=== PATIENT | male | born 1965 | race Caucasian/White ===

== ENCOUNTER 2016-11-10 03:45 | Emergency (ER) | payer BC ==
[2016-11-10] MEDS ORDERED: LORAZEPAM INJ 2 MG/1 ML VIAL IV ONE (04:18)
[2016-11-10 04:25] LABS: ABSOLUTE BASOPHILS # (AUTO) 0.1 10^3/uL (0.0-0.2); ABSOLUTE EOSINOPHILS # (AUTO) 0.3 10^3/uL (0.0-0.6); ABSOLUTE LYMPHOCYTES (AUTO) 4.1 10^3/uL (0.5-4.7); ABSOLUTE MONOCYTES (AUTO) 0.6 10^3/uL (0.1-1.4); ABSOLUTE NEUT (AUTO) 4.8 10^3/uL (1.7-8.2); BASOPHILS % (AUTO) 0.9 % (0-2); EOSINOPHILS % (AUTO) 2.6 % (0-6); HEMATOCRIT 47.8 % (37.9-51.0); HEMOGLOBIN 15.7 g/dL (13.5-17.0); HGB HCT DIFFERENCE -0.7; LYMPHOCYTES % (AUTO) 41.5 % (13-45); MEAN CORPUSCULAR HEMOGLOBIN 31.4 pg (27.0-33.4); MEAN CORPUSCULAR HGB CONC 32.9 g/dL (32.0-36.0); MEAN CORPUSCULAR VOLUME 95 fl (80-97); RED BLOOD COUNT 5.01 10^6/uL (4.35-5.55); RED CELL DISTRIBUTION WIDTH 12.8 % (11.5-14.0); WHITE BLOOD COUNT 9.8 10^3/uL (4.0-10.5)
--- NOTE | 2016-11-10 04:26 | ER Document Report ---
ED General - General Chief Complaint: Tremor Stated Complaint: UNCONTROLLABLE SHAKING Time Seen by Provider: 11/10/16 04:06 Mode of Arrival: Medic Information source: Patient Notes: Patient presents complaining of tremors to his upper extremities, right lower extremity and neck that started around midnight tonight. Patient states that his neck occasionally spasm causing his head to rotate to the right. Patient states that he additionally complains of occasional right upper quadrant pain for the past 4-5 months that has flared up tonight as well. Patient states that initially he had symptoms to bilateral hands, patient was given Benadryl per EMS and states that the hand tremors seem to have improved somewhat now. Patient denies any fever, nausea, or vomiting. Patient denies any recent illness. Patient states that he has had some hand twitching years ago but was never fully evaluated for this complaint and it resolved. - HPI Onset: Other - Midnight Onset/Duration: Gradual Quality of pain: Cramping Pain Level: 3 Associated symptoms: Other - Right upper quadrant abdominal pain, muscle twitching. 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 denies: Fever, Recent illness EENT: No symptoms reported Cardiovascular: No symptoms reported. denies: Chest pain, Dizziness Respiratory: No symptoms reported. denies: Cough, Short of breath Gastrointestinal: Abdominal pain. denies: Diarrhea, Nausea, Vomiting Genitourinary: No symptoms reported. denies: Dysuria Male Genitourinary: No symptoms reported Musculoskeletal: Muscle pain - Right thigh muscle tenderness due to muscle spasms. denies: Back pain Skin: No symptoms reported Hematologic/Lymphatic: No symptoms reported Neurological/Psychological: No symptoms reported Physical Exam - Vital signs Vitals: Temp Pulse Resp BP Pulse Ox 98.3 F 94 20 123/82 96 11/10/16 03:49 11/10/16 03:49 11/10/16 03:49 11/10/16 03:49 11/10/16 03:49 - General General appearance: Appears well, Alert In distress: None - HEENT Head: Normocephalic, Atraumatic Eyes: Normal Conjunctiva: Normal Mouth/Lips: Normal Mucous membranes: Normal Pharynx: Normal Neck: Normal, Supple. No: Lymphadenopathy, Meningismus - Respiratory Respiratory status: No respiratory distress Chest status: Nontender Breath sounds: Normal. No: Rales, Rhonchi, Stridor, Wheezing Chest palpation: Normal - Cardiovascular Rhythm: Regular Heart sounds: S1 appreciated, S2 appreciated Murmur: No - Abdominal Inspection: Obese Distension: No distension Bowel sounds: Normal Tenderness: Tender - RUQ Organomegaly: No organomegaly - Back Back: Normal, Nontender. No: CVA tenderness, Vertebra tenderness - Extremities General upper extremity: Normal strength, Other - occasional twitching movements of bilat hands General lower extremity: Normal strength, Other - right thigh jerking rhythmically - Neurological Neuro grossly intact: Yes Cognition: Normal Jeffy Coma Scale Eye Opening: Spontaneous [place]y Coma Scale Verbal: Oriented Jeffy Coma Scale Motor: Obeys Commands [place] Coma Scale Total: 15 Speech: Normal. No: Dysarthria Cranial nerves: Normal. 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 No: Weakness - Psychological Associated symptoms: Normal affect, Normal mood - Skin Skin Temperature: Warm Skin Moisture: Dry Skin Color: Normal Course - Re-evaluation Re-evalutation: 11/10/16 04:[address] haines who advises evaluating electrolytes and treating with medications such as ativan 11/10/16 05:22 RN states that just prior to administration of Ativan, patient's tremors resolved. Currently resting with eyes closed, no tremors noted at this time. Patient states that occasionally his neck will start to drop to the right but otherwise he has no complaints. 11/10/16 05:[address] haines, reviewed chemistry panel, recommends giving 1.5 liter NS bolus and then rechecking chemistry. If pt still with elevated anion gap and muscle twitching, pt may need admission. 11/10/16 07:57 States that he feels much better, no additional muscle twitching or spasms. Consulted with Dr. Beard regarding patient presentation and repeat chemistry panel and agrees with discharge plan of care. - Vital Signs Vital signs: Temp Pulse Resp BP Pulse Ox 97.9 F 77 18 124/72 96 11/10/16 06:26 11/10/16 06:26 11/10/16 06:26 11/10/16 06:26 11/10/16 06:26 - Laboratory Result Diagrams: 11/10/16 03:55 11/10/16 06:50 Laboratory results interpreted by me: 11/10/16 11/10/16 11/10/16 03:55 04:40 06:50 Carbon Dioxide 16 L 18 L Anion Gap 25 H Glucose 230 H 172 H Total Protein 8.3 H Urine Protein 30 H Urine Glucose (UA) >=500 H Urine Ketones 20 H Urine Blood SMALL H Labs- Entire Visit 11/10/16 11/10/16 11/10/16 03:55 03:55 04:40 WBC 9.8 RBC 5.01 Hgb 15.7 Hct 47.8 MCV 95 MCH 31.4 MCHC 32.9 RDW 12.8 Plt Count 351 Seg Neutrophils % 49.0 Lymphocytes % 41.5 Monocytes % 6.0 Eosinophils % 2.6 Basophils % 0.9 Absolute Neutrophils 4.8 Absolute Lymphocytes 4.1 Absolute Monocytes 0.6 Absolute Eosinophils 0.3 Absolute Basophils 0.1 Sodium 144.3 Potassium 4.8 Chloride 103 Carbon Dioxide 16 L Anion Gap 25 H BUN 14 Creatinine 0.82 Est GFR ( Amer) > 60 Est GFR (Non-Af Amer) > 60 Glucose 230 H Calcium 10.1 Total Bilirubin 0.5 Direct Bilirubin 0.4 Indirect Bilirubin Not Reportable Neonat Total Bilirubin Not Reportable AST 41 ALT 64 Alkaline Phosphatase 89 Creatine Kinase 114 Total Protein 8.3 H Albumin 5.0 Lipase 119.9 Urine Color YELLOW Urine Appearance CLEAR Urine pH 5.0 Ur Specific [place] 1.009 Urine Protein 30 H Urine Glucose (UA) >=500 H Urine Ketones 20 H Urine Blood SMALL H Urine Nitrite NEGATIVE Urine Bilirubin NEGATIVE Urine Urobilinogen NEGATIVE Ur Leukocyte Esterase NEGATIVE Urine WBC (Auto) 1 Urine RBC (Auto) 0 U Hyaline Cast (Auto) 1 Urine Mucus (Auto) RARE Urine Ascorbic Acid NEGATIVE Urine Opiates Screen Urine Methadone Screen Ur Barbiturates Screen Ur Phencyclidine Scrn Ur Amphetamines Screen U Benzodiazepines Scrn Urine Cocaine Screen U Marijuana (THC) Screen 11/10/16 11/10/16 04:40 06:50 WBC RBC Hgb Hct MCV MCH MCHC RDW Plt Count Seg Neutrophils % Lymphocytes % Monocytes % Eosinophils % Basophils % Absolute Neutrophils Absolute Lymphocytes Absolute Monocytes Absolute Eosinophils Absolute Basophils Sodium 143.4 Potassium 4.1 Chloride 107 Carbon Dioxide 18 L Anion Gap 18 BUN 12 Creatinine 0.77 Est GFR ( Amer) > 60 Est GFR (Non-Af Amer) > 60 Glucose 172 H Calcium 8.8 Total Bilirubin Direct Bilirubin Indirect Bilirubin Neonat Total Bilirubin AST ALT Alkaline Phosphatase Creatine Kinase Total Protein Albumin Lipase Urine Color Urine Appearance Urine pH Ur Specific [place] Urine Protein Urine Glucose (UA) Urine Ketones Urine Blood Urine Nitrite Urine Bilirubin Urine Urobilinogen Ur Leukocyte Esterase Urine WBC (Auto) Urine RBC (Auto) U Hyaline Cast (Auto) Urine Mucus (Auto) Urine Ascorbic Acid Urine Opiates Screen NEGATIVE Urine Methadone Screen NEGATIVE Ur Barbiturates Screen NEGATIVE Ur Phencyclidine Scrn NEGATIVE Ur Amphetamines Screen NEGATIVE U Benzodiazepines Scrn NEGATIVE Urine Cocaine Screen NEGATIVE U Marijuana (THC) Screen NEGATIVE Discharge - Discharge Clinical Impression: Muscle twitching, elevated anion gap-resolved, dystonia-resolved Condition: Stable Disposition: HOME, SELF-CARE Instructions: Extrapyramidal Symptoms ([facility]) Additional Instructions: Return immediately for any new or worsening symptoms Followup with your primary care provider, [facility], call tomorrow to make a followup appointment See your primary doctor this week for recheck.
[2016-11-10 04:32] LABS: ALANINE AMINOTRANSFERASE 64 U/L (21-72); ALKALINE PHOSPHATASE 89 U/L (38-126); ASPARTATE AMINO TRANSFERASE 41 U/L (17-59); BILIRUBIN,DIRECT 0.4 mg/dL (0.0-0.4); BILIRUBIN,TOTAL 0.5 mg/dL (0.2-1.3); BLOOD UREA NITROGEN 14 mg/dL (7-20); CALCIUM 10.1 mg/dL (8.4-10.2); CARBON DIOXIDE 16 mmol/L (22-30); CHLORIDE 103 mmol/L (98-107); CREATINE KINASE 114 U/L (55-170); CREATININE RESULT 0.82 mg/dL (0.52-1.25); GLUCOSE 230 mg/dL (75-110); LIPASE 119.9 U/L (23-300); POTASSIUM 4.8 mmol/L (3.6-5.0); TOTAL PROTEIN 8.3 g/dL (6.3-8.2)
[2016-11-10 04:40] LABS: ANION GAP 25 (5-19); SODIUM 144.3 mmol/L (137-145)
[2016-11-10 05:00] LABS: APPEARANCE,URINE CLEAR; BILIRUBIN,URINE NEGATIVE (NEGATIVE); GLUCOSE, URINE >=500 mg/dL (NEGATIVE); KETONES,URINE 20 mg/dL (NEGATIVE); LEUKOCYTE ESTERASE,URINE NEGATIVE (NEGATIVE); NITRITE,URINE NEGATIVE (NEGATIVE); PROTEIN,URINE 30 mg/dL (NEGATIVE); URINE SPECIFIC GRAVITY 1.009; UROBILINOGEN,URINE NEGATIVE mg/dL (<2.0)
[2016-11-10 05:13] LABS: URINE BARBITURATES SCREEN NEGATIVE; URINE METHADONE SCREEN NEGATIVE; URINE OPIATES LOW NEGATIVE; URINE PHENCYCLIDINE SCREEN NEGATIVE
--- NOTE | 2016-11-10 05:28 | RADIOLOGY REPORT (SQ) ---
EXAM DESCRIPTION: U/S ABDOMEN LIMITED W/O DOP COMPLETED DATE/TIME: 11/10/2016 5:12 am REASON FOR STUDY: RUQ pain COMPARISON: None. TECHNIQUE: Dynamic and static grayscale images acquired of the right upper quadrant and recorded on PACS. Additional selected color Doppler and spectral images recorded. LIMITATIONS: Study limited due to acoustical interference from fat or from air in the bowel. FINDINGS: PANCREAS: Parts or all of the pancreas poorly seen secondary to acoustical interference fr om fat or from air in the bowel. LIVER: Echotexture is coarse with increased echogenicity consistent with fatty infiltration. No mass es. LIVER VASCULATURE: Normal directional flow of the main portal vein and hepatic veins. GALLBLADDER: No stones. Normal wall thickness. No pericholecystic fluid. ULTRASOUND-DETECTED CHAIREZ'S SIGN: Negative. INTRAHEPATIC DUCTS AND COMMON DUCT: CBD and intrahepatic ducts normal caliber. No filling defects. INFERIOR VENA CAVA: Normal flow. AORTA: No aneurysm. RIGHT KIDNEY: Normal size. Normal echogenicity. No solid or suspicious masses. No hydronephros is. No calcifications. PERITONEAL CAVITY AND RIGHT PLEURAL SPACE: No ascites or effusions. OTHER: No other significant finding. IMPRESSION: FATTY LIVER. PANCREAS PARTIALLY OR COMPLETELY OBSCURED. OTHERWISE NORMAL RIGHT UPPER DANN DRANT ULTRASOUND. TECHNICAL DOCUMENTATION: JOB ID: [id number] [employer]- All Rights Reserved
[2016-11-10] MEDS ORDERED: NORMAL SALINE 1000 ML 1,500 ML IV ONE (05:33)
[2016-11-10 07:23] LABS: ANION GAP 18 (5-19); BLOOD UREA NITROGEN 12 mg/dL (7-20); CALCIUM 8.8 mg/dL (8.4-10.2); CARBON DIOXIDE 18 mmol/L (22-30); CHLORIDE 107 mmol/L (98-107); CREATININE RESULT 0.77 mg/dL (0.52-1.25); GLUCOSE 172 mg/dL (75-110); POTASSIUM 4.1 mmol/L (3.6-5.0); SODIUM 143.4 mmol/L (137-145)
[2016-11-10 08:18] VITALS: BP 141/83
== END 2016-11-10 08:18 | disposition home or self-care (01) ==
LOC: ER 03:45
DX: G24.9 Dystonia, unspecified (principal); R10.11 Right upper quadrant pain; E11.9 Type 2 diabetes mellitus without complications; I10 Essential (primary) hypertension; F17.200 Nicotine dependence, unspecified, uncomplicated
CPT/HCPCS: 99284; 96361; 96374; 36415; 82550; 83690; 85025; 80048; 80053; 81001; 80307; 76705; J2060; J7030